=== PATIENT | female | born 1960 | race Caucasian/White ===

== ENCOUNTER 2023-07-08 07:42 | Day surgery (SDC) | payer OTHER, SELFPAY ==
[2023-07-07 14:08] VITALS: BMI 27.8
[2023-07-08] VITALS (10 sets, daily range): BP systolic 107–126; BP diastolic 52–66; PULSE 68–79; RESP 12–16; TEMP 36.2–36.7; O2SAT 95–100; BMI 28.6
[2023-07-08 08:19] LABS: Basophils Percent Auto 0.4 % (0.2-1.2); Eosinophils Absolute Auto 0.1 K/mm3 (0-0.3); Eosinophils Percent Auto 1.7 % (0-4.4); Hematocrit 39.1 % (37.0-47.0); Hemoglobin 12.5 g/dL (12.0-15.0); Immature Granulocyte Absolute 0.01 K/mm3 (0.00-0.031); Immature Granulocyte Percent A 0.2 % (0-0.5); Lymphocytes Absolute Auto 2.08 K/mm3 (0.9-3.2); Lymphocytes Percent Auto 43.8 % (18.3-44.2); Mean Corpuscular Hemoglobin 29.9 pg (26-34); Mean Corpuscular Volume 93.5 fl (80-100); Mean Platelet Volume 8.6 fl (7.4-10.4); Monocytes Absolute Auto 0.8 K/mm3 (0.1-0.6); Monocytes Percent Auto 16.6 % (2.6-8.5); Neutrophils Absolute Auto 1.8 K/mm3 (1.3-6.7); Neutrophils Percent Auto 37.3 % (45.5-73.1); Platelet Count Result 305 k/mm3 (150-375); Red Blood Count 4.18 M/mm3 (4.2-5.4); Red Cell Distribution Width 13.5 % (11.5-14.5); White Blood Count 4.8 K/mm3 (4.5-10.0)
[2023-07-08 08:30] LABS: Prothrombin Time 13.6 Seconds (11.1-14.7)
[2023-07-08] MEDS: SODIUM CHLORIDE 0.9% IV 500 ML 100 ML IV CONT (08:30)
[2023-07-08 08:31] LABS: Anion Gap 9 mmol/L (8-16); Blood Urea Nitrogen 23 mg/dL (7-17); Calcium 9.4 mg/dL (8.4-10.2); Carbon Dioxide 25 mmol/L (22-30); Chloride 106 mmol/L (98-107); Estimated CRCL calculation 52 ml/min; Estimated Glomerular Filt Rate > 60; Glucose 96 mg/dL (65-110); Potassium 3.7 mmol/L (3.4-5.0); Sodium 140 mmol/L (137-145)
--- NOTE | 2023-07-08 09:17 | WPDMODSED ---
Moderate Sedation Note-Pt Data Patient Data Diagnosis: Asymptomatic atrial and ventricular arrhythmias mildly abnormal stress echo hypertension Present Complaint: no complaints Procedure to be performed/Plan: left heart catheterization Allergies Allergy/AdvReac Type Severity Reaction Status Date / Time No Known Allergies Allergy Verified 07/08/23 08:02 Home Medications Medication Instructions Recorded Confirmed Type bimatoprost 0.03 % drops with 1 applic topical HS 07/07/23 07/07/23 History applicator, eyelash base cetirizine 10 mg tablet 10 mg PO DAILY 07/07/23 07/07/23 History estradiol 0.01% (0.1 mg/gram) 1 g vaginal 3XW PRN Iritation 07/07/23 07/07/23 History vaginal cream fluticasone propionate 50 1 spray intranasal DAILY PRN 07/07/23 07/07/23 History mcg/actuation nasal Allergies spray,suspension glucosamine HCl 750 mg tablet 750 mg PO DAILY 07/07/23 07/07/23 History hydrochlorothiazide 25 mg tablet 25 mg PO DAILY 07/07/23 07/07/23 History loratadine 10 mg tablet 10 mg PO DAILY 07/07/23 07/07/23 History losartan 50 mg tablet 50 mg PO DAILY 07/07/23 07/07/23 History metoprolol succinate 25 mg 25 mg PO DAILY 07/07/23 07/07/23 History tablet,extended release 24 hr omega-3 fatty acids 1,000 mg 2,000 mg PO DAILY 07/07/23 07/07/23 History capsule pantoprazole 40 mg tablet,delayed 40 mg PO DAILY 07/07/23 07/07/23 History release vitamin B complex 1 tablet PO DAILY 07/07/23 07/07/23 History Current Medications: Active Medications Sodium Chloride (Normal Saline Iv) 500 mls @ 100 mls/hr IV CONT .Q5H SHAKIRA Sedation/Anesthesia: No previous sedation/anesthesia problems (including family history). [facility] Family History Family History (Updated 12/12/15 @ 23:19 by DOCTOR UNKNOWN) Father Family history of diabetes mellitus in first degree relative Other Family history of malignant neoplasm Social History Social History Smoking packs per day: 0.5 Smoking cigarettes per day: 10.0 Years smoked: 36 Smoking pack-years: 18.00 Smoking status: Former smoker Tobacco type: cigarettes Alcohol intake: never Substance use: never Substance use type: does not use Last use: 2013 Living arrangements: with family Spiritual care concerns: No Mod Sed Physical Exam Physical Exam Pre Procedural Exam: Normal: Appearance, Neck, Throat, Airway, Lungs, Heart Size, Heart Rate, Heart Rhythm, Neuro Exam and Extremities Hours since solid foods: 12 Hours since liquid intake: 12 Mallampati Classification: class II Internal Medicine - PN: Obj Da Vital Signs Vital Signs: Vital Signs - 24 hr 07/08/23 08:04 Temperature 36.7 C Pulse Rate 75 Respiratory Rate 12 Blood Pressure 116/57 L Pulse Oximetry 99 Oxygen Delivery Room Air Meds/Results Medications: Active Medications Generic Name Dose Route Start Last Admin Trade Name Freq PRN Reason Stop Dose Admin Sodium Chloride 500 mls @ 100 mls/hr 07/08/23 07:30 Normal Saline Iv IV CONT .Q5H SHAKIRA Labs 07/08/23 08:01 07/08/23 08:01 Labs: Laboratory Results - last 24 hr 07/08/23 08:01 WBC 4.8 RBC 4.18 L Hgb 12.5 Hct 39.1 MCV 93.5 MCH 29.9 MCHC 32.0 RDW 13.5 Plt Count 305 MPV 8.6 Immature Gran % (Auto) 0.2 Neut % (Auto) 37.3 L Lymph % (Auto) 43.8 [place] % (Auto) 16.6 H Eos % (Auto) 1.7 Baso % (Auto) 0.4 Lymph # (Auto) 2.08 [place] # (Auto) 0.8 H Eos # (Auto) 0.1 Baso # (Auto) 0.0 Abs Immat Gran (auto) 0.01 Absolute Neuts (auto) 1.8 Absolute Nucleated RBC 0.0 Nucleated RBC % 0.0 PT 13.6 INR 1.0 Sodium 140 Potassium 3.7 Chloride 106 Carbon Dioxide 25 Anion Gap 9 BUN 23 H Creatinine 0.90 Estim Creat Clear Calc 52 Estimated GFR > 60 Glucose 96 Calcium 9.4 ASA Classification/Sedation ASA Classification/Sedation ASA Class: II Emergent: No Risks: Risks, benefits and alternatives explained and patient/famil
--- NOTE | 2023-07-08 09:18 | PM.IMHP ---
H&P: HPI History of Present Illness Date/Time: 07/08/23 09:18 Chief Complaint: no complaints this morning Narrative: this is a pleasant 63-year-old lady scheduled today for outpatient left heart catheterization because of ventricular arrhythmias and a mildly abnormal stress echocardiogram. The patient is not reporting any cardiac symptoms such as chest pain exertional dyspnea orthopnea PND or edema. She does have occasional palpitations. She was referred to see my partner in the office in April of 2023 for preoperative risk assessment prior to cystoscopy. Cystoscopy was performed without any difficulty at that time. Because of the symptoms she wore a Holter monitor which demonstrated a short burst of nonsustained ventricular tachycardia which was asymptomatic. For this reason an exercise stress echo was done in the office which was abnormal but at a low risk category. She achieved 101% of her age predicted maximum heart rate on the treadmill she did have post exercise ejection fraction was 70-75%. There was some reported thinning of the inferolateral segment. With these findings she was referred today for catheterization. Review of Systems Constitutional: Constitutional: Reports no additional constitutional complaints Eyes: Eyes: Reports no additional eye complaints ENT: Reports system reviewed and no additional complaints, except as documented Cardiovascular: Cardiovascular: Reports palpitations Respiratory: Respiratory: Reports no additional respiratory complaints Gastrointestinal: Gastrointestinal: Reports no additional gastrointestinal complaints Genitourinary: Genitourinary: Reports no additional female genitourinary complaints Musculoskeletal: Musculoskeletal: Reports no additional musculoskeletal complaints Integumentary/Breasts: Skin/Breast: Reports system reviewed and no additional complaints, except as docu Neurologic: Reports system reviewed and no additional complaints, except as documented [facility] Family History Family History (Updated 12/12/15 @ 23:19 by DOCTOR UNKNOWN) Father Family history of diabetes mellitus in first degree relative Other Family history of malignant neoplasm Social History Social History Smoking packs per day: 0.5 Smoking cigarettes per day: 10.0 Years smoked: 36 Smoking pack-years: 18.00 Smoking status: Former smoker Tobacco type: cigarettes Alcohol intake: never Substance use: never Substance use type: does not use Last use: 2013 Living arrangements: with family Spiritual care concerns: No Meds Home Medications and Allergies Home Medications Medication Instructions Recorded Confirmed Type bimatoprost 0.03 % drops with 1 applic topical HS 07/07/23 07/07/23 History applicator, eyelash base cetirizine 10 mg tablet 10 mg PO DAILY 07/07/23 07/07/23 History estradiol 0.01% (0.1 mg/gram) 1 g vaginal 3XW PRN Iritation 07/07/23 07/07/23 History vaginal cream fluticasone propionate 50 1 spray intranasal DAILY PRN 07/07/23 07/07/23 History mcg/actuation nasal Allergies spray,suspension glucosamine HCl 750 mg tablet 750 mg PO DAILY 07/07/23 07/07/23 History hydrochlorothiazide 25 mg tablet 25 mg PO DAILY 07/07/23 07/07/23 History loratadine 10 mg tablet 10 mg PO DAILY 07/07/23 07/07/23 History losartan 50 mg tablet 50 mg PO DAILY 07/07/23 07/07/23 History metoprolol succinate 25 mg 25 mg PO DAILY 07/07/23 07/07/23 History tablet,extended release 24 hr omega-3 fatty acids 1,000 mg 2,000 mg PO DAILY 07/07/23 07/07/23 History capsule pantoprazole 40 mg tablet,delayed 40 mg PO DAILY 07/07/23 07/07/23 History release vitamin B complex 1 tablet PO DAILY 07/07/23 07/07/23 History Allergies Allergy/AdvReac Type Severity Reaction Status Date / Time No Known Allergies Allergy Verified 07/08/23 08:02 Vital Signs Vital Signs - 24 hr 07/08/23 08:04 Temperature 36.7 C Pulse Rate 75 Respiratory Rate 12 Bloo
--- NOTE | 2023-07-08 09:55 | P.PCNCC_ITS ---
Cardiac Cath Procedure Note Date of procedure:: 07/08/23 Performing physician:: Bar Herrera MD Indication:: ventricular arrhythmia is abnormal stress echo Brief clinical history:: this 63-year-old woman who has had palpitations. Holter monitoring demonstrated some asymptomatic nonsustained VT. Stress echocardiography was performed as an outpatient. There were ST segment abnormalities noted on the treadmill however patient had no symptoms, wall motion abnormalities and achieved over 100% of age predicted maximal heart rate. In this setting and angiogram has been recommended. Procedure Procedure performed:: Left ventriculogram coronary angiogram Angio-Seal to right femoral artery Sedation/Medication given:: fentanyl 50 mg and Versed 2 mg case start time 9:27 a.m. case end time 9:52 a.m. sedation provided by Faith Jimenez RN, trained observer Access site:: right femoral artery Estimated blood loss:: 20 cc Procedure note:: patient was brought to the cardiac catheterization lab in the postabsorptive state the right femoral triangle was prepared and draped in the usual fashion. Anesthesia was given with 1% lidocaine infiltrated locally. Using the modified Seldinger technique this 5 [place] sheath was placed into the right common femoral artery after this left heart catheterization was carried out. A 5 [place] angled pigtail catheter was used to document left-sided hemodynamics and perform a left ventriculogram in the 30 degree CAN projection. Following this a 5 [place] FL4 catheter was used to engage and inject the left coronary artery. This catheter was seen to sub selectively inject the circumflex. 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 I then used a 5 FL 3.5 catheter followed by AL1 catheter and with the AL1 catheter I was able to obtain satisfactory visualization of the LAD. Following this the right coronary artery was engaged and injected using a standard 5 [place] JR4 catheter in multiple projections. After this the case was terminated an angiogram was performed the femoral artery through the sheath after which a 6 [place] Angio- Seal device was deployed with a good hemostatic result. 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 Findings:: Hemodynamics: The central aortic pressure is 122 56 left ventricle 122/4 end-diastolic pressure 10 there is no gradient on a pullback across the aortic valve. Left ventricle: The LV is normal in size all segments contract normally the global ejection is 55-60% by visual estimation the left main coronary artery essentially does not exist as there are separate LAD and circumflex ostia. The left anterior descending is a medium caliber artery extending down to the apex the LAD is patent without atherosclerotic abnormalities the circumflex is a medium caliber artery giving rise to the marginal branches. There was only 1 significant size large OM branch. The circumflex is smooth and angiographically normal. The right coronary is dominant and to the posterior circulation giving rise to the RPDA and several RPL branches. The right coronary system is smooth and angiographically unremarkable. Conclusion:: 1. right coronary dominant circulation with no angiographic evidence of coronary disease 2. 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 normal left ventricular systolic function Bar Herrera MD FACC
== END 2023-07-08 13:30 | disposition home or self-care (01) ==
PROVIDERS: Visit Provider Specialist
PROC: 4A023N7 Measurement of Cardiac Sampling and Pressure, Left Heart, Percutaneous Approach (ICD-10-PCS; CPT 93452; principal; 2023-07-08 09:00)
DX: R93.1 Abnormal findings on diagnostic imaging of heart and coronary circulation (principal); I47.10 Supraventricular tachycardia, unspecified; Z87.891 Personal history of nicotine dependence
CPT/HCPCS: 36415; 80048; 85025; 85610; 93458; C1760; C1887; C1894; G0269; J1644; J2250; J3010; J7040